=== PATIENT | male | born 1950 | race Asian ===

== ENCOUNTER 2021-05-14 14:58 | Emergency (ER) | payer OTHER ==
[~2021-05-14] VITALS: Ht 180.3 cm; Wt 72.6 kg
[2021-05-14 15:48] LABS: PLATELET COUNT 181 K/uL (142-355)
[2021-05-14 15:51] LABS: POTASSIUM 4.5 mmol/L (3.6-5.2)
[2021-05-14 16:55] VITALS: BP 148/76; TEMP 98
[2021-05-15] MEDS ORDERED: AMLODIPINE BESYLATE PO (15:05)
[2021-05-15] MEDS ORDERED: BUPROPION HYDRO75 MG PO (15:07)
[2021-05-15] MEDS ORDERED: BUSPIRONE HYDR7.5 MG PO (15:08)
[2021-05-15] MEDS ORDERED: DIVALPROEX125 MG PO (15:09)
[2021-05-15] MEDS ORDERED: LISI20TA11 PO (15:09)
[2021-05-15] MEDS ORDERED: RISP0.25 PO (15:10)
[2021-05-15] MEDS ORDERED: ASPIR-LOW81 MG PO (15:12)
[2021-05-15] MEDS ORDERED: VITAMIN B-12 PO (15:15)
[2021-05-15] MEDS ORDERED: D31000 UNI1 PO (15:17)
== END 2021-05-14 16:55 | disposition still patient (30) ==
LOC: ED 14:58
PROVIDERS: Emergency Medicine
DX: R46.89 Other symptoms and signs involving appearance and behavior (principal); I10 Essential (primary) hypertension; Z11.52 Encounter for screening for COVID-19; Z04.6 Encounter for general psychiatric examination, requested by authority
CPT/HCPCS: 80053; 85027; 87635; 93005; 99283; U0003